=== PATIENT | female | born 2000 | race Caucasian/White ===

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

== ENCOUNTER → 2019-11-06 | Outpatient (CLI) | payer OTHER ==
[2016-09-14 22:50] VITALS: BP 112/73
== END ==
LOC: RAD 14:53
DX: S19.9XXA Unspecified injury of neck, initial encounter (principal); M54.5 Low back pain; V89.2XXA Person injured in unspecified motor-vehicle accident, traffic, initial encounter